=== PATIENT | female | born 1930 | race Two or more races ===

== ENCOUNTER 2017-03-16 14:50 | Outpatient (CLI) | payer MEDICARE, BC ==
[2017-03-16 13:12] LABS: BASOPHILS % (AUTO) 0.3 %; EOSINOPHILS # (AUTO) 0.1 10^3/uL (0.0-0.7); EOSINOPHILS % (AUTO) 1.7 %; HCT - HEMATOCRIT 38.5 % (37.0-47.0); HGB - HEMOGLOBIN 12.8 g/dL (12.0-16.0); LYMPHOCYTES # (AUTO) 1.2 10^3/uL (1.5-3.5); MEAN CORPUSCULAR HEMOGLOBIN 28.5 pg (27.0-31.0); MEAN CORPUSCULAR HGB CONC 33.2 g/dL (32.0-36.0); MEAN CORPUSCULAR VOLUME 85.8 fL (81.0-99.0); MEAN PLATELET VOLUME 8.4 fL (7.9-10.8); MONOCYTES # (AUTO) 0.3 10^3/uL (0.0-1.0); MONOCYTES % (AUTO) 6.2 %; NEUTROPHILS # (AUTO) 3.9 10^3/uL (1.5-6.6); NEUTROPHILS % (AUTO) 69.8 %; NUCLEATED RED BLOOD CELLS AUTO 0.1 /100WBC; RED BLOOD COUNT 4.49 10^6/uL (4.20-5.40); RED CELL DISTRIBUTION WIDTH 14.4 % (12.0-15.0); UNCORRECTED WHITE BLOOD COUNT 5.6 x10^3/uL; WHITE BLOOD COUNT 5.6 x10^3/uL (4.8-10.8)
[2017-03-16 13:19] LABS: ALBUMIN/GLOBULIN RATIO 1.2 (1.0-2.2); BILIRUBIN,TOTAL 0.7 mg/dL (0.2-1.0); BUN - BLOOD UREA NITROGEN 20 mg/dL (6-20); CALCIUM 9.4 mg/dL (8.5-10.3); CARBON DIOXIDE - CO2 29 mmol/L (21-32); CHLORIDE 102 mmol/L (101-111); CHOL/HDL RATIO 4.2 (<4.4); CHOLESTEROL 195 mg/dL; CREATININE 0.8 mg/dL (0.4-1.0); GFR - MDRD 68 (>89); GLUCOSE 124 mg/dL (70-100); HDL CHOLESTEROL 46 mg/dL; POTASSIUM 4.2 mmol/L (3.5-5.0); SODIUM 137 mmol/L (135-145); TOTAL PROTEIN 7.8 g/dL (6.7-8.2); TRIGLYCERIDES 59 mg/dL; VLDL CHOLESTEROL 12 mg/dL
[2017-03-16 13:23] LABS: HEMOGLOBIN A1C 0.6 g/dL
== END 2017-03-16 14:51 | disposition home or self-care (01) ==
LOC: LAB.WCP 14:50
PROVIDERS: ATTEND Family Medicine
DX: I10 Essential (primary) hypertension (principal); E11.9 Type 2 diabetes mellitus without complications; I25.10 Atherosclerotic heart disease of native coronary artery without angina pectoris; E78.5 Hyperlipidemia, unspecified
CPT/HCPCS: 36415; 80053; 80061; 82043; 83036; 84443; 85025

== ENCOUNTER 2018-07-14 09:29 | Outpatient (CLI) | payer MEDICARE, BC ==
[2018-07-14 12:25] LABS: BASOPHILS % (AUTO) 0.7 %; EOSINOPHILS # (AUTO) 0.1 10^3/uL (0.0-0.7); EOSINOPHILS % (AUTO) 1.5 %; HGB - HEMOGLOBIN 13.4 g/dL (12.0-16.0); LYMPHOCYTES # (AUTO) 1.2 10^3/uL (1.5-3.5); LYMPHOCYTES % (AUTO) 20.4 %; MEAN CORPUSCULAR HEMOGLOBIN 28.8 pg (27.0-31.0); MEAN CORPUSCULAR HGB CONC 33.4 g/dL (32.0-36.0); MEAN CORPUSCULAR VOLUME 86.1 fL (81.0-99.0); MEAN PLATELET VOLUME 8.2 fL (7.9-10.8); MONOCYTES # (AUTO) 0.4 10^3/uL (0.0-1.0); MONOCYTES % (AUTO) 6.7 %; NEUTROPHILS # (AUTO) 4.3 10^3/uL (1.5-6.6); NEUTROPHILS % (AUTO) 70.7 %; PLT - PLATELET COUNT 151 10^3/uL (130-450); RED BLOOD COUNT 4.67 10^6/uL (4.20-5.40); RED CELL DISTRIBUTION WIDTH 15.4 % (12.0-15.0)
[2018-07-14 12:57] LABS: ALBUMIN 4.3 g/dL (3.2-5.5); ALBUMIN/GLOBULIN RATIO 1.3 (1.0-2.2); ALKALINE PHOSPHATASE 50 IU/L (42-121); ALT ALANINE AMINOTRANSFERASE 11 IU/L (10-60); AST ASPARTATE AMINOTRANSFERASE 15 IU/L (10-42); BILIRUBIN,TOTAL 0.5 mg/dL (0.2-1.0); BUN - BLOOD UREA NITROGEN 25 mg/dL (6-20); CALCIUM 9.1 mg/dL (8.5-10.3); CARBON DIOXIDE - CO2 30 mmol/L (21-32); CHLORIDE 102 mmol/L (101-111); CHOL/HDL RATIO 3.8 (<4.4); CHOLESTEROL 188 mg/dL; CREATININE 0.6 mg/dL (0.4-1.0); GFR - MDRD 95 (>89); GLUCOSE 120 mg/dL (70-100); HDL CHOLESTEROL 50 mg/dL; LDL CHOLESTEROL,CALCULATED 130 mg/dL; LDL/HDL RATIO 2.6 (<4.4); SODIUM 139 mmol/L (135-145); TOTAL PROTEIN 7.5 g/dL (6.7-8.2); VLDL CHOLESTEROL 8 mg/dL
== END 2018-07-14 23:59 | disposition home or self-care (01) ==
LOC: LAB.WCP 09:29
PROVIDERS: ATTEND Family Medicine
DX: I10 Essential (primary) hypertension (principal); E78.5 Hyperlipidemia, unspecified; E03.9 Hypothyroidism, unspecified
CPT/HCPCS: 36415; 80053; 80061; 83721; 84443; 85025

== ENCOUNTER 2018-09-28 11:38 | Emergency (ER) | payer MEDICARE, BC ==
[2018-09-28] MEDS ORDERED: SODIUM CHLORIDE 0.9% 1,000 ML IV STA (11:56)
[2018-09-28] MEDS ORDERED: LOPERAMIDE 2 MG CAPSULE PO STA (12:26)
[2018-09-28] MEDS ORDERED: ONDANSETRON 4 MG/2 ML VIAL IVP STA (12:26)
--- NOTE | 2018-09-28 12:27 | ED Physician Documentation ---
PD HPI NVD - Stated complaint Stated Complaint: SENT BY DOC - Chief complaint Chief Complaint: Abd Pain - History obtained from History obtained from: Patient, Family (daughter) - History of Present Illness Timing - onset: Other (This is an 88-year-old woman with history of hypertension who became acutely ill about 48 hours ago with vomiting and subsequently diarrhea. She has not vomited since last night but the diarrhea continues. She denies pain. Her son-in-law had a similar illness about 4 days ago and is improving. There is no associated fevers.) Review of Systems Constitutional: denies: Fever, Chills Cardiac: denies: Chest pain / pressure, Palpitations Respiratory: denies: Dyspnea, Cough GI: reports: Nausea, Vomiting, Diarrhea. denies: Abdominal Pain, Abdominal Swelling, Hematemesis, Bloody / black stool PD PAST MEDICAL HISTORY - Past Medical History Cardiovascular: Hypertension, High cholesterol Endocrine/Autoimmune: HyPOthyroidism - Past Surgical History Past Surgical History: Yes General: Bowel surgery - Present Medications Home Medications: Ambulatory Orders Medication Instructions Recorded Confirmed Levothyroxine [Synthroid] 1 tab PO DAILY 12/24/15 09/28/18 Metoprolol Succinate 1 tab PO DAILY 12/24/15 09/28/18 Simvastatin 1 tab PO DAILY 12/24/15 09/28/18 Loperamide [Imodium] 2 mg PO QID PRN #10 capsule 09/28/18 Ondansetron Odt [Zofran] 4 mg TL Q6H PRN #10 tablet 09/28/18 - Allergies Allergies/Adverse Reactions: Allergies Allergy/AdvReac Type Severity Reaction Status Date / Time No Known Drug Allergies Allergy Verified 09/28/18 11:54 - Social History Does the pt smoke?: No Smoking Status: Never smoker Does the pt drink ETOH?: No Does the pt have substance abuse?: No - Immunizations Immunizations are current?: Yes PD ED PE NORMAL - Vitals Vital signs reviewed: Yes - General General: Other (She has poor memory for recent events and is hard of hearing, much of the history is from the daughter.) - HEENT HEENT: Other (The anterior chamber of the left cornea is opacified) - Neck Neck: Supple, no meningeal sign, No bony TTP - Cardiac Cardiac: RRR, No murmur - Respiratory Respiratory: No respiratory distress, Clear bilaterally - Abdomen Abdomen: Normal bowel sounds, Soft, Non tender - Neuro Eye Opening: Spontaneous Motor: Obeys Commands Verbal: Confused GCS Score: 14 Results - Vitals Vitals: Vital Signs - 24 hr 09/28/18 09/28/18 11:49 13:33 Temperature 98.5 C H 37.1 C Heart Rate 100 85 Respiratory 14 16 Rate Blood Pressure 162/78 H 139/65 H O2 Saturation 96 98 Oxygen O2 Source Room air - Labs Labs: Laboratory Tests 09/28/18 09/28/18 12:30 12:30 WBC 5.9 RBC 4.56 Hgb 13.0 Hct 39.3 MCV 86.2 MCH 28.5 MCHC 33.1 RDW 15.2 H Plt Count 140 MPV 8.0 Neut # (Auto) 5.0 Lymph # (Auto) 0.5 L Terrell # (Auto) 0.3 Eos # (Auto) 0.0 Baso # (Auto) 0.0 Absolute Nucleated RBC 0.00 Nucleated RBC % 0.0 Sodium 135 Potassium 3.7 Chloride 99 L Carbon Dioxide 26 Anion Gap 10.0 BUN 26 H Creatinine 0.8 Estimated GFR (MDRD) 68 L Glucose 98 Calcium 8.5 Total Bilirubin 0.7 AST 19 ALT 14 Alkaline Phosphatase 38 L Total Protein 7.1 Albumin 4.0 Globulin 3.1 Albumin/Globulin Ratio 1.3 Lipase 25 PD MEDICAL DECISION MAKING - ED course ED course: This is an 88-year-old woman for IV fluids, the clinical syndrome is consistent with a gastroenteritis with dehydration. The gastroenteritis is improving but she needs a little help with dehydration and continued diarrhea. She still nauseous to. After the administration of IV fluids, Zofran and Imodium she felt much better. She passed a p.o. challenge. On reexamination she remained nontender. Departure - Departure Disposition: Home, Self Care Clinical Impression: Gastroenteritis, Dehydration Condition: Good Record reviewed to determine appropriate education?: Yes Instructions: ED Gastroenteritis Viral Prescriptions: Loperamide [Imodium] 2 mg PO QID PRN #10 capsule PRN Reason: Diarrhea Ondansetron Odt [Zofran] 4 mg TL Q6H PRN #10 tablet PRN Reason: Nausea / Vomiting Comments: Return if not better by tomorrow morning, anytime for new or worsening symptoms.
[2018-09-28 12:43] LABS: BASOPHILS % (AUTO) 0.4 %; EOSINOPHILS % (AUTO) 0.1 %; LYMPHOCYTES # (AUTO) 0.5 10^3/uL (1.5-3.5); LYMPHOCYTES % (AUTO) 9.1 %; MEAN CORPUSCULAR HEMOGLOBIN 28.5 pg (27.0-31.0); MEAN CORPUSCULAR HGB CONC 33.1 g/dL (32.0-36.0); MEAN CORPUSCULAR VOLUME 86.2 fL (81.0-99.0); MONOCYTES # (AUTO) 0.3 10^3/uL (0.0-1.0); MONOCYTES % (AUTO) 5.7 %; NEUTROPHILS % (AUTO) 84.7 %; PLT - PLATELET COUNT 140 10^3/uL (130-450); RED BLOOD COUNT 4.56 10^6/uL (4.20-5.40); RED CELL DISTRIBUTION WIDTH 15.2 % (12.0-15.0); WHITE BLOOD COUNT 5.9 x10^3/uL (4.8-10.8)
[2018-09-28 12:59] LABS: ALBUMIN/GLOBULIN RATIO 1.3 (1.0-2.2); BILIRUBIN,TOTAL 0.7 mg/dL (0.2-1.0); CALCIUM 8.5 mg/dL (8.5-10.3); CREATININE 0.8 mg/dL (0.4-1.0); TOTAL PROTEIN 7.1 g/dL (6.7-8.2)
[2018-09-28 13:34] VITALS: BP 139/65
== END 2018-09-28 14:10 | disposition home or self-care (01) ==
LOC: ED 11:38
DX: K52.9 Noninfective gastroenteritis and colitis, unspecified (principal); E86.0 Dehydration; I10 Essential (primary) hypertension
CPT/HCPCS: 36415; 80053; 83690; 85025; 96374; 99283; A9270

== ENCOUNTER 2019-10-12 10:38 | Outpatient (CLI) | payer MEDICARE, BC ==
--- NOTE | 2019-10-12 19:46 | XRAY Report ---
Reason: SHORTNESS OF BREATH Procedure Date: 10/12/2019 Accession Number: [id number] / [id number] Procedure: WCP - Chest 2 View X-Ray CPT Code: 49752 Final Report FULL RESULT: EXAM: CHEST RADIOGRAPHY EXAM DATE: 10/12/2019 10:38 AM. CLINICAL HISTORY: SHORTNESS OF BREATH. Fatigue, weakness. COMPARISON: None. TECHNIQUE: 2 views. FINDINGS: Lungs/Pleura: No focal opacities evident. No interstitial abnormality or peribronchial cuffing. No pleural effusion. No pneumothorax. Normal volumes. Mediastinum: Heart and mediastinal contours are unremarkable. Other: Marked generalized thoracic kyphosis. The patient's head partially obscures the upper lungs. IMPRESSION: No evidence of active cardiopulmonary disease. RADIA
== END 2019-10-12 23:59 | disposition home or self-care (01) ==
LOC: DI.WCP 10:38
PROVIDERS: ATTEND Family Medicine
DX: R06.02 Shortness of breath (principal)
CPT/HCPCS: 36415; 71046; 80048; 83880; 84484; 85027

== ENCOUNTER 2019-10-12 10:52 | Outpatient (CLI) | payer MEDICARE, BC ==
[2019-10-12 13:11] LABS: HGB - HEMOGLOBIN 13.7 g/dL (12.0-16.0); MEAN CORPUSCULAR HEMOGLOBIN 30.2 pg (27.0-31.0); MEAN CORPUSCULAR HGB CONC 32.4 g/dL (32.0-36.0); MEAN CORPUSCULAR VOLUME 93.2 fL (81.0-99.0); MEAN PLATELET VOLUME 10.6 fL (7.9-10.8); RED BLOOD COUNT 4.54 10^6/uL (4.20-5.40); WHITE BLOOD COUNT 6.6 x10^3/uL (4.8-10.8)
[2019-10-12 14:21] LABS: CALCIUM 9.3 mg/dL (8.5-10.3)
== END 2019-10-12 23:59 | disposition home or self-care (01) ==
LOC: LAB.WCP 10:52
PROVIDERS: ATTEND Family Medicine
DX: R06.02 Shortness of breath (principal)
CPT/HCPCS: 36415; 80048; 83880; 84484; 85027

== ENCOUNTER 2019-11-03 08:00 | Outpatient (CLI) | payer MEDICARE, BC ==
[2019-11-03 13:48] LABS: CALCIUM 9.7 mg/dL (8.5-10.3); CREATININE 0.7 mg/dL (0.4-1.0)
== END 2019-11-03 23:59 | disposition home or self-care (01) ==
LOC: LAB.WCP 08:00
PROVIDERS: ATTEND Family Medicine
DX: R06.02 Shortness of breath (principal)
CPT/HCPCS: 36415; 80048

== ENCOUNTER 2020-02-01 20:38 | Outpatient (CLI) | payer MEDICARE, BC | END 2020-02-01 20:39 | disposition critical access hospital (66) | LOC: EMS 20:38 | PROVIDERS: ATTEND Surgery | DX: S01.01XA Laceration without foreign body of scalp, initial encounter (principal); W01.0XXA Fall on same level from slipping, tripping and stumbling without subsequent striking against object, initial encounter; Y92.003 Bedroom of unspecified non-institutional (private) residence as the place of occurrence of the external cause | CPT/HCPCS: A0425; A0429 ==

== ENCOUNTER 2020-02-01 20:57 | Emergency (ER) | payer MEDICARE, BC ==
--- NOTE | 2020-02-01 20:59 | ED Physician Documentation ---
History of Present Illness - Stated complaint Stated Complaint: FALL, HEAD WOUND - History obtained from History obtained from: EMS - Additonal information Additional information: Patient is an 89-year-old female who slipped and fell after she suffered a mechanical fall and comes in with a laceration to her scalp. Denies any other complaints family is at bedside. Review of Systems Constitutional: reports: Reviewed and negative Eyes: reports: Reviewed and negative Ears: reports: Reviewed and negative Nose: reports: Reviewed and negative Throat: reports: Reviewed and negative Cardiac: reports: Reviewed and negative Respiratory: reports: Reviewed and negative GI: reports: Reviewed and negative : reports: Reviewed and negative Skin: reports: Laceration (s) Musculoskeletal: reports: Reviewed and negative Neurologic: reports: Head injury Psychiatric: reports: Reviewed and negative Endocrine: reports: Reviewed and negative Immunocompromised: reports: Reviewed and negative PD PAST MEDICAL HISTORY - Past Medical History Cardiovascular: Hypertension, High cholesterol Endocrine/Autoimmune: HyPOthyroidism - Past Surgical History Past Surgical History: Yes General: Bowel surgery - Present Medications Home Medications: Ambulatory Orders Medication Instructions Recorded Confirmed Levothyroxine [Synthroid] 1 tab PO DAILY 12/24/15 09/28/18 Metoprolol Succinate 1 tab PO DAILY 12/24/15 09/28/18 Simvastatin 1 tab PO DAILY 12/24/15 09/28/18 Loperamide [Imodium] 2 mg PO QID PRN #10 capsule 09/28/18 Ondansetron Odt [Zofran] 4 mg TL Q6H PRN #10 tablet 09/28/18 - Allergies Allergies/Adverse Reactions: Allergies Allergy/AdvReac Type Severity Reaction Status Date / Time No Known Drug Allergies Allergy Verified 09/28/18 11:54 - Social History Does the pt smoke?: No Smoking Status: Never smoker Does the pt drink ETOH?: No Does the pt have substance abuse?: No - Immunizations Immunizations are current?: Yes PD ED PE NORMAL - Vitals Vital signs reviewed: Yes - General General: Alert and oriented X 3, No acute distress - HEENT HEENT: PERRL, Other (2 and half centimeter scalp laceration galea intact no hemotympanum bilaterally no septal hematoma no acute missing teeth no raccoon eyes no dickerson sign) - Neck Neck: Supple, no meningeal sign, Other (Cervical collar in place no step-offs or deformities of the cervical spine) - Cardiac Cardiac: RRR, No murmur - Respiratory Respiratory: Clear bilaterally - Abdomen Abdomen: Normal bowel sounds, Soft, Non tender, Non distended - Derm Derm: Warm and dry - Extremities Extremities: No deformity - Neuro Neuro: Alert and oriented X 3 - Psych Psych: Normal mood, Normal affect Results - Vitals Vitals: Vital Signs - 24 hr 02/01/20 02/01/20 02/01/20 21:06 22:00 23:00 Temperature 36.5 C Heart Rate 108 H 95 88 Respiratory 22 20 20 Rate Blood Pressure 165/79 H 155/80 H 143/83 H O2 Saturation 98 100 96 Oxygen O2 Source Room air Procedures - Laceration (location) Scalp right Length in cm: 2.5 Wound type: Linear Neurovascular status: Sensory intact, Motor intact, Vascular intact Anesthesia: Lidocaine 1% with epi Wound Preparation: Irrigated copiously NS, Other (no foreign body identified, galea intact) Skin layer closure: Bert (3) Other: Patient tolerated well, No complications, Neurovascular intact, Tetanus booster given Complexity: Simple PD MEDICAL DECISION MAKING - ED course Complexity details: reviewed results, re-evaluated patient, considered differential (Scalp laceration), d/w patient, d/w family ED course: 89-year-old female with mechanical fall with scalp laceration laceration was closed in the scalp with using bert.CT scan of the head and neck are negative cervical collar was removed using Nexus criteria. Departure - Departure Disposition: 01 Home, Self Care Clinical Impression: Scalp laceration Qualifiers: Encounter type: initial encounter Qualified Code(s): S01.01XA - Laceration without foreign body of scalp, initial encounter Condition: Stable Instructions: ED Laceration Scalp Stitch Or Stap Follow-Up: Nate Johnson DO [Primary Care Provider] - Tomorrow Comments: Please follow-up with your physician tomorrow for recheck. Your bert should be removed in 10 days.Applied topical [id number] antibiotic such as Neosporin to the wound 2 times daily. Discharge Date/Time: 02/01/20 23:00
[2020-02-01] MEDS ORDERED: TETANUS/DIPHTHERIA/PERTUSSIS 0.5 ML SYRINGE IM ONE (21:09)
[2020-02-01] MEDS ORDERED: LIDOCAINE 1%-EPI 1:100000 20 ML MDV SUBQ STA (21:09)
--- NOTE | 2020-02-01 22:20 | CT Report ---
PROCEDURE: HEAD WO INDICATIONS: fall head injury TECHNIQUE: Noncontrast 4.5 mm thick angled axial sections acquired from the foramen magnum to the vertex. For r adiation dose reduction, the following was used: automated exposure control, adjustment of mA and/or kV according to patient size. COMPARISON: 12/24/2015 FINDINGS: Image quality: Excellent. CSF spaces: Basal cisterns are patent. No extra-axial fluid collections. Ventricles are normal in size and shape. Brain: No midline shift. No intracranial masses or hemorrhage. Reyes-white matter interface is norm al. There is volume loss commensurate for age. Atherosclerotic calcification of intracranial internal carotid arteries. Mild hypodensity in the periventricular white matter. Skull and face: Subcutaneous hematoma in the right parietal region and in the right lateral periorbi catherine region. No visible fractures. Calvarium and visualized facial bones are intact, without suspiciou s lesions. Sinuses: Visualized sinuses and mastoids are clear. IMPRESSION: 1. Age-appropriate exam without evidence of intracranial trauma. 2. Right periorbital and parietal soft tissue injury is without underlying fracture. Reviewed by: Blanca Swanson MD on 02/01/2020 10:18 PM PDT Approved by: Blanca Swanson MD on 02/01/2020 10:18 PM PDT Station ID: [id number]
--- NOTE | 2020-02-01 22:26 | CT Report ---
PROCEDURE: CERVICAL SPINE WO INDICATIONS: fall head injury TECHNIQUE: Noncontrast 3 mm thick sections acquired from the skull base to the T4 level. Sagittal and coronal r eformats were then constructed. For radiation dose reduction, the following was used: automated exp osure control, adjustment of mA and/or kV according to patient size. COMPARISON: 12/24/2015 FINDINGS: Image quality: Excellent. Bones: No acute fractures or dislocations. Multiple anterior endplate osteophytes in the cervical s pine, mainly from C5 through C7. Bridging osteophytes are present from the cervical spine into the th oracic spine. There is also dystrophic ossification between the spinous processes and partial ankylos is of the upper thoracic facet joints. Visualized superior ribs are intact. Soft tissues: Prevertebral soft tissues are normal in thickness. No paravertebral hematomas. No ap ical pneumothoraces. IMPRESSION: 1. No CT evidence of acute cervical spine trauma. 2. Multilevel degenerative changes. 3. 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 Reviewed by: Blanca Swanson MD on 02/01/2020 10:24 PM PDT Approved by: Blanca Swanson MD on 02/01/2020 10:24 PM PDT Station ID: [id number]
[2020-02-01 23:10] VITALS: BP 143/83
== END 2020-02-01 23:00 | disposition home or self-care (01) ==
LOC: EDUNIT# → ED 20:57
DX: S01.01XA Laceration without foreign body of scalp, initial encounter (principal); W01.0XXA Fall on same level from slipping, tripping and stumbling without subsequent striking against object, initial encounter
CPT/HCPCS: 12001; 70450; 72125; 90471; 99282; 99284

== ENCOUNTER 2020-04-14 12:17 | Emergency (ER) | payer MEDICARE, BC ==
[2020-04-14] MEDS ORDERED: ONDANSETRON 4 MG/2 ML VIAL IVP STA ×3 (12:48→20:12)
--- NOTE | 2020-04-14 12:53 | ED Physician Documentation ---
PD HPI ABD PAIN - Stated complaint Stated Complaint: VOMITING,ABD PX,CHILLS - Chief complaint Chief Complaint: Abd Pain - History obtained from History obtained from: Patient, Family - History of Present Illness Timing - onset: How many hours ago (4) Timing - duration: Hours (4) Timing - details: Abrupt onset Pain level max: 3 Pain level now: 2 Quality: Aching, Pain Location: All over / everywhere Radiation: No: Chest, , Lower back, Left flank, Left shoulder, Right flank, Right shoulder, Upper back Improved by: Vomiting Worsened by: Eating Associated symptoms: Nausea, Vomiting. No: Fever, Hematemesis, Diarrhea, Constipation, Melena, Hematochezia, Dysuria Similar symptoms before: Diagnosis (incarcerated hernia with bowel obstruction) Review of Systems Ten Systems: 10 systems reviewed and negative Constitutional: denies: Fever, Chills GI: reports: Vomiting Skin: denies: Rash Musculoskeletal: denies: Neck pain, Back pain Neurologic: denies: Headache PD PAST MEDICAL HISTORY - Past Medical History Past Medical History: Yes Cardiovascular: Hypertension, High cholesterol Neuro: Alzhiemer's, Dementia Endocrine/Autoimmune: HyPOthyroidism - Past Surgical History Past Surgical History: Yes General: Bowel surgery - Present Medications Home Medications: Ambulatory Orders Medication Instructions Recorded Confirmed Levothyroxine [Synthroid] 112 mcg PO QDAC 12/24/15 09/28/18 Metoprolol Succinate 50 mg PO DAILY 12/24/15 09/28/18 Simvastatin 40 mg PO QPM 12/24/15 09/28/18 Loperamide [Imodium] 2 mg PO QID PRN #10 capsule 09/28/18 Ondansetron Odt [Zofran] 4 mg TL Q6H PRN #10 tablet 09/28/18 Furosemide [Lasix] 20 mg PO DAILY 04/14/20 04/14/20 - Allergies Allergies/Adverse Reactions: Allergies Allergy/AdvReac Type Severity Reaction Status Date / Time No Known Drug Allergies Allergy Verified 09/28/18 11:54 - Social History Does the pt smoke?: No Smoking Status: Never smoker Does the pt drink ETOH?: No Does the pt have substance abuse?: No - Immunizations Immunizations are current?: Yes PD ED PE NORMAL - Vitals Vital signs reviewed: Yes - General General: Alert and oriented X 3, No acute distress - HEENT HEENT: Moist mucous membranes - Neck Neck: Supple, no meningeal sign - Cardiac Cardiac: RRR - Respiratory Respiratory: No respiratory distress, Clear bilaterally - Abdomen Abdomen: Other (large RLQ hernia, TTP, soft, mild diffuse abd TTP. no peritoneal signs. ) - Derm Derm: Warm and dry - Extremities Extremities: No calf tenderness / cord - Neuro Neuro: Alert and oriented X 3 - Psych Psych: Normal mood, Normal affect Results - Vitals Vitals: Vital Signs - 24 hr 04/14/20 04/14/20 04/14/20 12:21 13:59 15:00 Temperature 36.9 C Heart Rate 117 H 94 86 Respiratory 18 18 20 Rate Blood Pressure 144/64 H 175/84 H 186/90 H O2 Saturation 96 97 98 04/14/20 04/14/20 17:00 19:00 Temperature Heart Rate 80 98 Respiratory 18 19 Rate Blood Pressure 177/80 H 178/86 H O2 Saturation 99 96 Oxygen O2 Source Room air - EKG (time done) 1538 Rate: Rate (enter#) (96) Rhythm: NSR [place]: Normal Intervals: Normal NE QRS: Normal Ischemia: Non specific changes - Labs Labs: Laboratory Tests 04/14/20 04/14/20 04/14/20 13:02 13:02 13:46 WBC 7.9 RBC 4.63 Hgb 13.8 Hct 43.1 MCV 93.1 MCH 29.8 MCHC 32.0 RDW 14.0 Plt Count 154 MPV 10.4 Neut # (Auto) 7.4 H Lymph # (Auto) 0.3 L Weber # (Auto) 0.2 Eos # (Auto) 0.0 Baso # (Auto) 0.0 Absolute Nucleated RBC 0.00 Nucleated RBC % 0.0 Sodium 137 Potassium 3.9 Chloride 95 L Carbon Dioxide 29 Anion Gap 13.0 BUN 24 H Creatinine 0.8 Estimated GFR (MDRD) 68 L Glucose 167 H Calcium 10.4 H Total Bilirubin 1.3 H AST 21 ALT 14 Alkaline Phosphatase 44 Total Protein 8.5 H Albumin 5.1 Globulin 3.4 Albumin/Globulin Ratio 1.5 Lipase 34 Urine Color YELLOW Urine Clarity CLEAR Urine pH 7.0 Ur Specific [place] 1.020 Urine Protein TRACE Urine Glucose (UA) NEGATIVE Urine Ketones 40 H Urine Occult Blood SMALL H Urine Nitrite NEGATIVE Urine Bilirubin NEGATIVE Urine Urobilinogen 0.2 (NORMAL) Ur Leukocyte Esterase NEGATIVE Urine RBC 0-5 Urine WBC 0-3 Ur Squamous Epith Cells FEW Squamous Amorphous Sediment Moderate Urine Bacteria None Seen Ur Microscopic Review INDICATED Urine Culture Comments NOT INDICATED SARS-CoV-2 (PCR) 04/14/20 15:52 WBC RBC Hgb Hct MCV MCH MCHC RDW Plt Count MPV Neut # (Auto) Lymph # (Auto) Weber # (Auto) Eos # (Auto) Baso # (Auto) Absolute Nucleated RBC Nucleated RBC % Sodium Potassium Chloride Carbon Dioxide Anion Gap BUN Creatinine Estimated GFR (MDRD) Glucose Calcium Total Bilirubin AST ALT Alkaline Phosphatase Total Protein Albumin Globulin Albumin/Globulin Ratio Lipase Urine Color Urine Clarity Urine pH Ur Specific [place] Urine Protein Urine Glucose (UA) Urine Ketones Urine Occult Blood Urine Nitrite Urine Bilirubin Urine Urobilinogen Ur Leukocyte Esterase Urine RBC Urine WBC Ur Squamous Epith Cells Amorphous Sediment Urine Bacteria Ur Microscopic Review Urine Culture Comments SARS-CoV-2 (PCR) NOT DETECTED - Rads (name of study) CT abdomen pelvis Radiology: Prelim report reviewed, EMP read contemporaneously, See rad report PD MEDICAL DECISION MAKING - ED course Complexity details: reviewed results, re-evaluated patient, considered differential, d/w patient, d/w family, d/w peoplesoft consultant ED course: Patient with an incarcerated right lower quadrant hernia. Consulted Dr. Haynes, general surgery who will come evaluate the patient. She came and evaluated the patient, was planning to take the patient to the operating room, but anesthesia states that she is too high risk because of her kyphosis and anesthesia refuses to perform the operation here. Thus we will attempt to transfer the patient. Discussed the case with Dr. Durham, general surgery at [facility] in [place] who graciously accepts in transfer at 1830. COBRA forms completed. 1. Interval development of right lower lateral, anterior abdominal wall ventral hernia containing multiple loops of small bowel, some demonstrating moderate dilatation. The small bowel proximal to the hernia is also dilated with air-fluid levels. Multiple segments within the hernia sac are decompressed as well as the small bowel and colon distally. Findings are consistent with small bowel obstruction with incarceration of herniated bowel. Location and appearance of this hernia is suggestive of possible spigelian hernia. Recommend further evaluation with surgical consultation. 2. Other chronic findings as above not significantly changed. CXR Possible 9 mm lower lung zone pulmonary nodule versus superimposition artifact. No abnormalities are seen in the lower lungs on today's CT of the abdomen and pelvis. Follow-up recommended. Otherwise, no acute cardiopulmonary abnormalities. Departure - Departure Disposition: 02 Transfer Acute Care Hosp Clinical Impression: Incarcerated hernia Bowel obstruction Qualifiers: Intestinal obstruction type: unspecified Intestinal obstruction extent: complete Qualified Code(s): K56.601 - Complete intestinal obstruction, unspecified as to cause Condition: Stable
[2020-04-14] MEDS ORDERED: IOVERSOL 320 50 ML VIAL ONE (13:00)
[2020-04-14] MEDS ORDERED: IOVERSOL 320 100 ML VIAL IVP ONE ×2 (13:00→15:35)
[2020-04-14 13:19] LABS: BASOPHILS % (AUTO) 0.1 %; EOSINOPHILS % (AUTO) 0.1 %; HGB - HEMOGLOBIN 13.8 g/dL (12.0-16.0); LYMPHOCYTES # (AUTO) 0.3 10^3/uL (1.5-3.5); LYMPHOCYTES % (AUTO) 3.8 %; MEAN CORPUSCULAR HEMOGLOBIN 29.8 pg (27.0-31.0); MEAN CORPUSCULAR VOLUME 93.1 fL (81.0-99.0); MEAN PLATELET VOLUME 10.4 fL (7.9-10.8); MONOCYTES # (AUTO) 0.2 10^3/uL (0.0-1.0); MONOCYTES % (AUTO) 2.3 %; NEUTROPHILS # (AUTO) 7.4 10^3/uL (1.5-6.6); NEUTROPHILS % (AUTO) 93.2 %; PLT - PLATELET COUNT 154 10^3/uL (130-450); RED BLOOD COUNT 4.63 10^6/uL (4.20-5.40); WHITE BLOOD COUNT 7.9 x10^3/uL (4.8-10.8)
[2020-04-14 13:28] LABS: ALBUMIN 5.1 g/dL (3.2-5.5); ALBUMIN/GLOBULIN RATIO 1.5 (1.0-2.2); BILIRUBIN,TOTAL 1.3 mg/dL (0.2-1.0); CALCIUM 10.4 mg/dL (8.5-10.3); CREATININE 0.8 mg/dL (0.4-1.0); TOTAL PROTEIN 8.5 g/dL (6.7-8.2)
[2020-04-14 15:06] LABS: BILIRUBIN,URINE NEGATIVE (NEGATIVE); CLARITY,URINE CLEAR (CLEAR); GLUCOSE, URINE (UA) NEGATIVE (NEGATIVE); KETONES,URINE (UA) 40 mg/dL (NEGATIVE); LEUKOCYTE ESTERASE, URINE NEGATIVE (NEGATIVE); NITRITE,URINE NEGATIVE (NEGATIVE); OCCULT BLOOD,URINE SMALL (NEGATIVE); PROTEIN,URINE TRACE mg/dL (NEGATIVE); UROBILINOGEN,URINE 0.2 (NORMAL) E.U./dL (NORMAL)
[2020-04-14 15:15] LABS: RBC,URINE 0-5 /HPF (0-5); SQUAMOUS EPITHELIAL CELL,UR FEW Squamous (<= Few)
[2020-04-14 15:16] LABS: AMORPHOUS SEDIMENT,UR Moderate /LPF; BACTERIA,URINE None Seen /HPF (None Seen)
--- NOTE | 2020-04-14 15:20 | CT Report ---
PROCEDURE: Abdomen/Pelvis W INDICATIONS: vomiting, abd pain CONTRAST: IV CONTRAST: Optiray 320 ml: 100 PO CONTRAST: *NO PO CONTRAST TECHNIQUE: After the administration of both oral and weight appropriate dose of intravenous contrast, 5 mm thick sections acquired from the diaphragms to the symphysis. 5 mm thick coronal and sagittal reformats w ere acquired. For radiation dose reduction, the following was used: automated exposure control, adj ustment of mA and/or kV according to patient size. COMPARISON: 09/10/2011 FINDINGS: Image quality: Excellent. ABDOMEN: Lung bases: Mild bibasilar atelectasis. Heart size is normal. Solid organs: Liver and spleen are normal in size and enhancement. Scattered hepatic hypodensities a re stable. Gallbladder mildly distended. Biliary system is non dilated. Pancreas enhances normally. No adrenal nodules. Kidneys demonstrate normal size and enhancement, without hydronephrosis. Peritoneum and bowel: Interval development of right lower quadrant ventral abdominal hernia containin g multiple loops of small bowel with short segment that is moderately distended. There is also small bowel obstruction proximal to the hernia. The more distal loops of small bowel within the hernia are decompressed. There is no obstructive symptoms of the colon. Stable postsurgical changes in the cecum likely from prior appendectomy. No significant bowel wall thickening noted in the obstructed segment s of small bowel. No free air. Nodes and vessels: No retroperitoneal or mesenteric adenopathy by siz e criteria. Aorta and inferior vena cava are normal in size. Atherosclerotic calcifications of the abdominal aorta are present. PELVIS: Genitourinary: Bladder wall thickness is normal. Miscellaneous: No inguinal hernias or adenopathy. Bones: No suspicious bony lesions. No acute vertebral body compression fractures. IMPRESSION: 1. Interval development of right lower lateral, anterior abdominal wall ventral hernia containing mul tiple loops of small bowel, some demonstrating moderate dilatation. The small bowel proximal to the h ernia is also dilated with air-fluid levels. Multiple segments within the hernia sac are decompressed as well as the small bowel and colon distally. Findings are consistent with small bowel obstruction with incarceration of herniated bowel. Location and appearance of this hernia is suggestive of possi ble spigelian hernia. Recommend further evaluation with surgical consultation. 2. Other chronic findings as above not significantly changed. Findings were discussed with Dr. Kwon of the emergency department at 1517 hrs PST Reviewed by: Osbaldo Mac MD on 04/14/2020 2:18 PM [facility] Approved by: Osbaldo Mac MD on 04/14/2020 2:18 PM AKST Station ID: [id number]
[2020-04-14] MEDS ORDERED: IOVERSOL 320 50 ML VIAL PO ONE (15:35)
--- NOTE | 2020-04-14 16:05 | XRAY Report ---
PROCEDURE: Chest 1 View X-Ray INDICATIONS: pre-op TECHNIQUE: One view of the chest was acquired. COMPARISON: 10/12/[address] abdomen and pelvis dated 09/10/2011 FINDINGS: Surgical changes and devices: None. Lungs and pleura: No pleural effusions or pneumothorax. Possible 9 mm right lower lung zone pulmonar y nodule versus artifact from superimposition underlying rib, inferior tip of the scapula, and adjace nt bronchovascular structures. Mediastinum: Mediastinal contours appear normal. Heart size is normal. Bones and chest wall: No suspicious bony lesions. Overlying soft tissues appear unremarkable. IMPRESSION: Possible 9 mm lower lung zone pulmonary nodule versus superimposition artifact. No abnormalities are seen in the lower lungs on today's CT of the abdomen and pelvis. Follow-up recommended. Otherwise, no acute cardiopulmonary abnormalities. Reviewed by: Osbaldo Mac MD on 04/14/2020 3:04 PM [facility] Approved by: Osbaldo Mac MD on 04/14/2020 3:04 PM [facility] Station ID: [id number]
[2020-04-14] MEDS ORDERED: BUPIVACAINE 0.5% PF 30 ML VIAL SUBQ ONE (16:15)
[2020-04-14] MEDS ORDERED: LIDOCAINE 1%-EPI 1:100000 20 ML MDV SUBQ ONE (16:16)
[2020-04-14] MEDS ORDERED: fentaNYL 100 MCG/2 ML VIAL IVP PRN (16:18)
[2020-04-14] MEDS ORDERED: ePHEDrine 50 MG/ML VIAL IVP PRN (16:18)
[2020-04-14] MEDS ORDERED: MORPHINE 2 MG/ML CARPUJECT IVP PRN (16:18)
[2020-04-14] MEDS ORDERED: ONDANSETRON 4 MG/2 ML VIAL IVP PRN (16:18)
[2020-04-14] MEDS ORDERED: NALOXONE 0.4 MG/ML VIAL IVP PRN (16:18)
[2020-04-14] MEDS ORDERED: ATROPINE ABBOJECT 1 MG/10 ML SYRINGE IVP PRN (16:18)
[2020-04-14] MEDS ORDERED: HYDROmorphone 0.5 MG/0.5 ML SYRINGE IVP PRN (16:18)
[2020-04-14] MEDS ORDERED: METOCLOPRAMIDE 10 MG/2 ML VIAL IVP PRN (16:18)
--- NOTE | 2020-04-14 16:18 | ANESTHESIA ---
Pre-Anesthesia VS, & Labs - Diagnosis incarcerated hernia small bowel obstruction - Procedure Abdominal hernia repair Vital Signs: Temp Pulse Resp BP Pulse Ox 36.9 C 86 20 186/90 H 98 04/14/20 12:21 04/14/20 15:00 04/14/20 15:00 04/14/20 15:00 04/14/20 15:00 Height: 5 ft 3 in Weight (kg): 63.503 kg Body Mass Index: 24.7 BMI Classification: Healthy weight - NPO >8 hours - Is Patient ?: No, Not Applicable - Lab Results Current Lab Results: Laboratory Tests 04/14/20 13:02: Sodium 137, Potassium 3.9, Chloride 95 L, Carbon Dioxide 29, Anion Gap 13.0, BUN 24 H, Creatinine 0.8, Estimated GFR (MDRD) 68 L, Glucose 167 H, Calcium 10.4 H, Total Bilirubin 1.3 H, AST 21, ALT 14, Alkaline Phosphatase 44, Total Protein 8.5 H, Albumin 5.1, Globulin 3.4, Albumin/Globulin Ratio 1.5, Lipase 34 04/14/20 13:02: WBC 7.9, RBC 4.63, Hgb 13.8, Hct 43.1, MCV 93.1, MCH 29.8, MCHC 32.0, RDW 14.0, Plt Count 154, MPV 10.4, Neut # (Auto) 7.4 H, Lymph # (Auto) 0.3 L, [place] # (Auto) 0.2, Eos # (Auto) 0.0, Baso # (Auto) 0.0, Absolute Nucleated RB C 0.00, Nucleated RBC % 0.0 Lab results reviewed: Yes Fish Bones: 04/14/20 13:02 04/14/20 13:02 Home Medications and Allergies Home Medications: Ambulatory Orders Furosemide [Lasix] 20 mg PO DAILY 04/14/20 Levothyroxine [Synthroid] 112 mcg PO QDAC 12/24/15 Metoprolol Succinate 50 mg PO DAILY 12/24/15 Simvastatin 40 mg PO QPM 12/24/15 Furosemide [Lasix] 20 mg PO DAILY 04/14/20 Allergies/Adverse Reactions: Allergies Allergy/AdvReac Type Severity Reaction Status Date / Time No Known Drug Allergies Allergy Verified 09/28/18 11:54 Anes History & Medical History - Anesthetic History Anesthesia Complications: reports: No previous complications Family history of Anesthesia Complications: Denies Family history of Malignant Hyperthermia: Denies - Medical History Cardiovascular: reports: Hypertension, High cholesterol Neuro: reports: Alzhiemer's, Dementia Endocrine/Autoimmune: reports: HyPOthyroidism Smoking Status: Never smoker - Surgical History General: Bowel surgery Results - EKG Results EKG Comparison: Reviewed EKG, Normal EKG Exam General: Alert, Cooperative, No acute distress Dental: Poor dentition Mouth Openin Fingerbreadth (FB) Neck Mobility: Limited (severely kyphotic, patient cannot extend at all. Had dependent drainage to right side of face from senior care position. Would need awake fiberoptic intubation and would have significant post operative pulmunary risks. Discussed with Dr. Haynes and agreed that she should be transfered.) Mallampati classification: IV Plan Anesthesia Type: General, Transverse Abdominis Plane (TAP) Block Regional Block: Per Surgeon's request for Post Op pain control Consent for Procedure(s) Verified and Reviewed: Yes Code Status: Attempt Resuscitation ASA classification: 3-Severe systemic disease Is this case an emergency?: Yes
[2020-04-14] MEDS ORDERED: LACTATED RINGERS 1,000 ML IV SCH (17:00)
--- NOTE | 2020-04-14 17:05 | CONSULTATION NOTE ---
Referring Provider Name of Referring Provider:: Dr. Valentin Kwon Consult Date: 04/14/20 Chief Complaint - Chief Complaint Chief Complaint: Incarcerated hernia with bowel obstruction History - Past Medical History Cardiovascular: reports: Hypertension, High cholesterol Neuro: reports: Alzhiemer's, Dementia Endocrine/Autoimmune: reports: HyPOthyroidism - Past Surgical History General: reports: Bowel surgery Meds/Allgy - Home Medications Home Medications: Ambulatory Orders Medication Instructions Recorded Confirmed Levothyroxine [Synthroid] 112 mcg PO QDAC 12/24/15 09/28/18 Metoprolol Succinate 50 mg PO DAILY 12/24/15 09/28/18 Simvastatin 40 mg PO QPM 12/24/15 09/28/18 Loperamide [Imodium] 2 mg PO QID PRN #10 capsule 09/28/18 Ondansetron Odt [Zofran] 4 mg TL Q6H PRN #10 tablet 09/28/18 Furosemide [Lasix] 20 mg PO DAILY 04/14/20 04/14/20 - Allergies Allergies/Adverse Reactions: Allergies Allergy/AdvReac Type Severity Reaction Status Date / Time No Known Drug Allergies Allergy Verified 09/28/18 11:54 Exam - Vital Signs Vital Signs: Vital Signs x48h Temp Pulse Resp BP Pulse Ox 04/14/20 15:00 86 20 186/90 H 98 04/14/20 13:59 94 18 175/84 H 97 04/14/20 12:21 36.9 C 117 H 18 144/64 H 96 Conclusion and Plan - Lab Results Laboratory Results 04/14/20 15:52: SARS-CoV-2 (PCR) NOT DETECTED 04/14/20 13:46: Urine Color YELLOW, Urine Clarity CLEAR, Urine pH 7.0, Ur Specific [place] 1.020, Urine Protein TRACE, Urine Glucose (UA) NEGATIVE, Urine Ketones 40 H, Urine Occult Blood SMALL H, Urine Nitrite NEGATIVE, Urine Federico irubin NEGATIVE, Urine Urobilinogen 0.2 (NORMAL), Ur Leukocyte Esterase NEGATIVE, Urine RBC 0-5, Urine WBC 0-3, Ur Squamous Epith Cells FEW Squamous, Amorphous Sediment Moderate, Urine Bacteria None Seen, Ur Microscopic Review INDICATED, Urine Culture Comments NOT INDICATED 04/14/20 13:02: Sodium 137, Potassium 3.9, Chloride 95 L, Carbon Dioxide 29, Anion Gap 13.0, BUN 24 H, Creatinine 0.8, Estimated GFR (MDRD) 68 L, Glucose 167 H, Calcium 10.4 H, Total Bilirubin 1.3 H, AST 21, ALT 14, Alkaline Phosphatase 44, Total Protein 8.5 H, Albumin 5.1, Globulin 3.4, Albumin/Globulin Ratio 1.5, Lipase 34 04/14/20 13:02: WBC 7.9, RBC 4.63, Hgb 13.8, Hct 43.1, MCV 93.1, MCH 29.8, MCHC 32.0, RDW 14.0, Plt Count 154, MPV 10.4, Neut # (Auto) 7.4 H, Lymph # (Auto) 0.3 L, [place] # (Auto) 0.2, Eos # (Auto) 0.0, Baso # (Auto) 0.0, Absolute Nucleated RBC 0.00, Nucleated RBC % 0.0
[2020-04-14] MEDS ORDERED: ONDANSETRON ODT 4 MG TABLET TL STA (20:09)
[2020-04-14 23:10] VITALS: BP 163/106
== END 2020-04-14 23:11 | disposition short-term general hospital (02) ==
LOC: ED 12:17
DX: K43.6 Other and unspecified ventral hernia with obstruction, without gangrene (principal); M40.209 Unspecified kyphosis, site unspecified; Z20.828 Contact with and (suspected) exposure to other viral communicable diseases; I10 Essential (primary) hypertension; E03.9 Hypothyroidism, unspecified; G30.9 Alzheimer's disease, unspecified; F02.80 Dementia in other diseases classified elsewhere, unspecified severity, without behavioral disturbance, psychotic disturbance, mood disturbance, and anxiety
CPT/HCPCS: 36415; 71045; 74177; 80053; 81001; 83690; 85025; 93005; 96374; 96376; 99284; 99285; J7120; Q9967; U0004; 81003; 87086

== ENCOUNTER 2020-09-01 12:41 | Emergency (ER) | payer MEDICARE, BC ==
[2020-09-01 13:01] VITALS: BP 145/68
--- NOTE | 2020-09-01 13:47 | ED Physician Documentation ---
History of Present Illness - Stated complaint Stated Complaint: GLF/LT SHOULDER PX - Chief complaint Chief Complaint: General - History obtained from History obtained from: Family (Fell in her room about 1 AM and found on the ground by her daughter's . She lives at home with them. She is quite demented but still ambulates.) Review of Systems Constitutional: reports: Reviewed and negative Eyes: reports: Reviewed and negative Ears: reports: Reviewed and negative Nose: reports: Reviewed and negative Throat: reports: Reviewed and negative Cardiac: reports: Reviewed and negative PD PAST MEDICAL HISTORY - Past Medical History Past Medical History: Yes Cardiovascular: Hypertension, High cholesterol Neuro: Alzhiemer's, Dementia Endocrine/Autoimmune: HyPOthyroidism - Past Surgical History Past Surgical History: Yes General: Bowel surgery - Present Medications Home Medications: Ambulatory Orders Medication Instructions Recorded Confirmed Levothyroxine [Synthroid] 112 mcg PO QDAC 12/24/15 09/01/20 Metoprolol Succinate 50 mg PO DAILY 12/24/15 09/01/20 Simvastatin 40 mg PO QPM 12/24/15 09/01/20 Loperamide [Imodium] 2 mg PO QID PRN #10 capsule 09/28/18 09/01/20 Ondansetron Odt [Zofran] 4 mg TL Q6H PRN #10 tablet 09/28/18 09/01/20 Furosemide [Lasix] 20 mg PO DAILY 04/14/20 09/01/20 QUEtiapine [SEROquel] 1 tab PO DAILY 09/01/20 09/01/20 - Allergies Allergies/Adverse Reactions: Allergies Allergy/AdvReac Type Severity Reaction Status Date / Time lactulose Allergy Unknown Verified 09/01/20 13:00 metformin Allergy Unknown Verified 09/01/20 13:00 - Social History Does the pt smoke?: No Smoking Status: Never smoker Does the pt drink ETOH?: No Does the pt have substance abuse?: No - Immunizations Immunizations are current?: Yes PD ED PE NORMAL - Vitals Vital signs reviewed: Yes - General General: Other (She has abrasions on both parietal areas, no neck tenderness. She is oriented to person only. She has a severe kyphosis.) - Neck Neck: No bony TTP - Respiratory Respiratory: Clear bilaterally - Abdomen Abdomen: Non tender - Back Back: No spinal TTP - Extremities Extremities: Other (Tender about the glenohumeral joint without obvious deformity. She cannot move it. Normal distal neurovascular status.) - Neuro Eye Opening: To Voice Motor: Obeys Commands Verbal: Confused GCS Score: 13 Results - Vitals Vitals: Vital Signs - 24 hr 09/01/20 12:58 Temperature 37 C Heart Rate 89 Respiratory 18 Rate Blood Pressure 145/68 H O2 Saturation 98 Oxygen O2 Source Room air PD MEDICAL DECISION MAKING - ED course ED course: We discussed CT imaging of the head and spine. The daughter declined noting that she is comfort care and would not act on positive results. 2 view x-ray of the right shoulder shows no acute abnormality, some limited ability to assess based on severe kyphosis. On repeat examination after x-ray I could move the shoulder fairly well and did not seem focally bony tenderness. There is no deformity. Departure - Departure Disposition: 01 Home, Self Care Clinical Impression: Head injury Qualifiers: Encounter type: initial encounter Qualified Code(s): S09.90XA - Unspecified injury of head, initial encounter Contusion of left shoulder Qualifiers: Encounter type: initial encounter Qualified Code(s): S40.012A - Contusion of left shoulder, initial encounter Condition: Good Record reviewed to determine appropriate education?: Yes Instructions: ED Head Injury Closed, ED Contusion Shoulder Comments: Encourage gentle range of motion exercises. Follow-up with your doctor within the week for recheck, especially if it is not improving.
--- NOTE | 2020-09-01 14:04 | XRAY Report ---
PROCEDURE: Shoulder 2 View LT INDICATIONS: L shoulder p s/p fall TECHNIQUE: 2 views of the shoulder were acquired. COMPARISON: Correlation is made with chest radiograph, 10/12/2019 FINDINGS: Study is limited by patient kyphosis and difficulty in patient positioning. Bones: No fractures or dislocations. No suspicious bony lesions. Visualized ribs appear intact. Soft tissues: No suspicious soft tissue calcifications. The visualized lung demonstrates a normal a ppearance. IMPRESSION: No fractures or dislocations can be seen. Reviewed by: Jose J Guerrero MD on 09/01/2020 1:03 PM [facility] Approved by: Jose J Guerrero MD on 09/01/2020 1:03 PM [facility] Station ID: [id number]
== END 2020-09-01 14:19 | disposition home or self-care (01) ==
LOC: ED 12:41
DX: S09.90XA Unspecified injury of head, initial encounter (principal); S40.012A Contusion of left shoulder, initial encounter; S00.01XA Abrasion of scalp, initial encounter; W18.30XA Fall on same level, unspecified, initial encounter; Y92.009 Unspecified place in unspecified non-institutional (private) residence as the place of occurrence of the external cause; G30.9 Alzheimer's disease, unspecified; F02.80 Dementia in other diseases classified elsewhere, unspecified severity, without behavioral disturbance, psychotic disturbance, mood disturbance, and anxiety; I10 Essential (primary) hypertension; M40.209 Unspecified kyphosis, site unspecified
CPT/HCPCS: 99282; 99283

== ENCOUNTER 2020-10-22 08:00 | Outpatient (CLI) | payer MEDICARE, BC ==
[2020-10-22 18:04] LABS: BASOPHILS % (AUTO) 0.4 %; EOSINOPHILS # (AUTO) 0.1 10^3/uL (0.0-0.7); EOSINOPHILS % (AUTO) 1.8 %; HCT - HEMATOCRIT 43.2 % (37.0-47.0); HGB - HEMOGLOBIN 13.6 g/dL (12.0-16.0); LYMPHOCYTES # (AUTO) 1.1 10^3/uL (1.5-3.5); LYMPHOCYTES % (AUTO) 23.1 %; MEAN CORPUSCULAR HEMOGLOBIN 30.9 pg (27.0-31.0); MEAN CORPUSCULAR HGB CONC 31.5 g/dL (32.0-36.0); MEAN CORPUSCULAR VOLUME 98.2 fL (81.0-99.0); MEAN PLATELET VOLUME 11.1 fL (7.9-10.8); MONOCYTES # (AUTO) 0.3 10^3/uL (0.0-1.0); MONOCYTES % (AUTO) 6.8 %; NEUTROPHILS # (AUTO) 3.1 10^3/uL (1.5-6.6); NEUTROPHILS % (AUTO) 67.7 %; PLT - PLATELET COUNT 145 10^3/uL (130-450); RED CELL DISTRIBUTION WIDTH 13.6 % (12.0-15.0); WHITE BLOOD COUNT 4.6 x10^3/uL (4.8-10.8)
[2020-10-22 18:20] LABS: CREATININE 0.6 mg/dL (0.4-1.0); POTASSIUM 4.1 mmol/L (3.5-5.0)
[2020-10-22 18:28] LABS: THYROID STIMULATING HORMONE 6.82 uIU/mL (0.34-5.60)
[2020-10-22 19:09] LABS: FREE T4 (FREE THYROXINE) 1.01 ng/dL (0.58-1.64)
== END 2020-10-22 23:59 | disposition home or self-care (01) ==
LOC: LAB.WCP 08:00
PROVIDERS: ATTEND Family Medicine
DX: I50.9 Heart failure, unspecified (principal); E03.9 Hypothyroidism, unspecified
CPT/HCPCS: 36415; 80048; 84439; 84443; 85025